=== PATIENT | male | born 1990 | race American Indian/Alaskan Native ===

== ENCOUNTER 2016-05-17 21:43 | Emergency (ER) | payer OTHER ==
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
[2016-05-18] MEDS ORDERED: NORCO 5/325 PO ONE (03:40)
[2016-05-18] MEDS ORDERED: FLEXERIL PO ONE (03:40)
[2016-05-18 04:41] VITALS: BP 122/77
== END 2016-05-18 04:54 | disposition home or self-care (01) ==
LOC: ED 21:43
DX: S39.012A Strain of muscle, fascia and tendon of lower back, initial encounter (principal); S60.222A Contusion of left hand, initial encounter; S60.221A Contusion of right hand, initial encounter; R51 Headache; V49.49XA Driver injured in collision with other motor vehicles in traffic accident, initial encounter; W22.10XA Striking against or struck by unspecified automobile airbag, initial encounter; Y93.89 Activity, other specified; Y99.8 Other external cause status; Y92.89 Other specified places as the place of occurrence of the external cause
CPT/HCPCS: 99282